=== PATIENT | female | born 1995 | race Caucasian/White ===

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

== ENCOUNTER 2018-04-18 17:37 | Emergency (ER) | payer BC ==
[2018-04-18] MEDS ORDERED: DEXAMETHASONE 10 MG/ML VIAL IVP ONE (18:49)
[2018-04-18] MEDS ORDERED: KETOROLAC 15 MG/1 ML SDV IVP ONE (18:49)
[2018-04-18] MEDS ORDERED: NS 1,000 ML IV ONE (18:49)
[2018-04-18 18:55] LABS: PLATELET COUNT 216 10^3/uL (150-400)
[2018-04-18] MEDS ORDERED: IOPAMIDOL (ISOVUE 370) 100 ML BTL IV ONE (19:28)
[2018-04-18] MEDS ORDERED: AMOXICILLIN/CLAVULANATE POT 875/125 MG TAB PO ONE (20:06)
--- NOTE | 2018-04-18 20:08 | EDPHY ---
H & P Stated Complaint: st strep flu mono all neg - Personal History LMP (Females 10-55): 22-28 Days Ago Current Tetanus Diphtheria and Acellular Pertussis (TDAP): Yes - Medical/Surgical History Hx Asthma: No Hx Chronic Respiratory Disease: No Hx Diabetes: No Hx Cardiac Disease: No Hx Renal Disease: No Hx Cirrhosis: No Hx Alcoholism: No Hx HIV/AIDS: No Hx Splenectomy or Spleen Trauma: No Other PMH: crohns - Social History Smoking Status: Never smoked Time Seen by Provider: 04/18/18 17:59 HPI/ROS: Chief complaint: Sore throat History of present illness: This is a 23-year-old female who presents to the emergency department for evaluation of a sore throat. She reports the onset of symptoms late last week. She was seen at urgent care and reports a negative flu , strep and mono swab. She was discharged with symptomatic care discussed. She feels symptoms are worsening. Increasing pain, difficulty swallowing, she is starting to spit up some of her secretions, and sensation of swelling in her throat. No fever. No cough or chest congestion. No headache or neck pain. Review of systems: A 10 point review of systems was obtained and other than described above was negative (Justin Cox) - Physical Exam Exam: General Appearance: Alert and no distress. Eyes: Pupils equal and round no injection. ENT: Tympanic membranes, external auditory canals, external easr and surrounding soft tissue including over the mastoids are unremarkable. Nasopharynx is not injected. There is no rhinorrhea. Oropharynx is injected. There is mild edema. Bilateral tonsillomegaly with exudate, right greater than left There is no The uvula is midline. No elevation of the tongue. There is mild hoarseness, no drooling, no trismus, no stridor. Respiratory: Chest is non tender, lungs are clear to auscultation. Cardiac: regular rate and rhythm Musculoskeletal: Neck is supple and non tender. Extremities have full range of motion and are non tender. Skin: No rashes or lesions. Neurological: No meningismus. (Justin Cox) Constitutional: Initial Vital Signs Temperature (C) 36.9 C 04/18/18 17:42 Heart Rate 120 H 04/18/18 17:42 Respiratory Rate 20 04/18/18 17:42 Blood Pressure 117/75 04/18/18 17:42 O2 Sat (%) 98 04/18/18 17:42 O2 Delivery Mode Room Air Allergies/Adverse Reactions: No Known Allergies Allergy (Verified 04/18/18 17:40) Home Medications: Medication Instructions Recorded Citalopram 12/24/16 Remicade Inj 100 mg (*) 12/24/16 Amoxicillin/Clavulanate Pot 875 mg PO BID #19 tab 04/18/18 [Augmentin 875 MG TAB (*)] Lo Loestrin Fe 1-10 Tablet 04/18/18 Medical Decision Making - Diagnostics Imaging: Discussed imaging studies w/ call center rn Radiologist ED Course/Re-evaluation: Patient seen under the supervision of my secondary supervising physician Dr. Matilda Dubon. Patient presents for worsening sore throat. She does clinically appear to have a tonsillitis. 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 She is symptomatically treated and reports she is feeling much better. I will treat her with Augmentin for suspected tonsillitis. She is referred to ENT and asked to see them tomorrow for recheck. Strict return precautions given. Patient voiced understanding and agreement with plan. (Justin Cox) Differential Diagnosis: Included but not limited to pharyngitis, tonsillitis, abscess formation (Justin Cox) Other Provider: The patient was evaluated and managed by the Physician Test Rider. I discussed the patient's presentation and course with the physician assistant surveyor and agree with the evaluation. My co-signature indicates that I have reviewed this chart and I agree with the findings and plan of care as documented. I am the secondary supervising physician. (Matilda Dubon) - Data Points Laboratory Results: Laboratory Results 04/18/18 18:45 04/18/18 18:45 Medications Given: Discontinued Medications Amoxicillin/Clavulanate Potassium (Augmentin 875mg) 875 mg PO EDNOW ONE PRN Reason: Protocol Stop: 04/18/18 20:07 Last Admin: 04/18/18 20:21 Dose: 875 mg Dexamethasone (Decadron Injection) 10 mg IVP EDNOW ONE Stop: 04/18/18 18:50 Last Admin: 04/18/18 18:57 Dose: 10 mg Sodium Chloride (Ns) 1,000 mls @ 0 mls/hr IV EDNOW ONE; Wide Open PRN Reason: Protocol Stop: 04/18/18 18:50 Last Admin: 04/18/18 18:54 Dose: 1,000 mls Ketorolac Tromethamine (Toradol) 15 mg IVP EDNOW ONE Stop: 04/18/18 18:50 Last Admin: 04/18/18 18:56 Dose: 15 mg Departure - Departure Disposition: Home, Routine, Self-Care Condition: Good Instructions: Tonsillitis (ED) Additional Instructions: Follow-up with an Ears Nose and Throat doctor tomorrow for recheck Take antibiotics as prescribed until finished even if feeling better Use ibuprofen 600 mg 3 times a day for the next 2-3 days for pain control If symptoms worsen or new symptoms develop return to the emergency department for recheck Referrals: NONE *PRIMARY CARE P,. [Primary Care Provider] - As per Instructions Brian Pollard MD [Medical Doctor] - As per Instructions Prescriptions: Amoxicillin/Clavulanate Pot [Augmentin 875 MG TAB (*)] 875 mg PO BID #19 tab
[2018-04-18 20:24] VITALS: BP 105/82
== END 2018-04-18 20:26 | disposition home or self-care (01) ==
DX: J03.90 Acute tonsillitis, unspecified (principal); E86.9 Volume depletion, unspecified; K50.90 Crohn's disease, unspecified, without complications
CPT/HCPCS: 96374; J1100; J1885; Q9967